=== PATIENT | male | born 1975 | race Caucasian/White ===

== ENCOUNTER 2020-10-09 10:12 | Emergency (ER) | payer OTHER ==
[~2020-10-09] VITALS: Ht 182.9 cm; Wt 70.5 kg
[2020-10-09] MEDS ORDERED: LORTAB 1010 MG PO (10:51)
[2020-10-09] MEDS ORDERED: FAMCICLOVIR500 MG PO ×3 (10:51→12:22)
[2020-10-09] MEDS ORDERED: ZOVIRAX52 TOP ×3 (10:51→12:22)
[2020-10-09 11:06] VITALS: BP 120/87
== END 2020-10-09 11:06 | disposition home or self-care (01) | DRG 596 ==
LOC: ED 10:12
DX: B02.9 Zoster without complications (principal)